=== PATIENT | female | born 1965 | race Caucasian/White ===

== ENCOUNTER 2025-08-19 07:49 | Outpatient (REF) | payer OTHER, SELFPAY | END 2025-08-19 07:50 | disposition home or self-care (01) | LOC: HO.SH 07:49 | PROVIDERS: Visit Provider Nurse Practitioner Family | DX: H93.293 Other abnormal auditory perceptions, bilateral (principal); H90.3 Sensorineural hearing loss, bilateral | CPT/HCPCS: 92557; 92567 ==